=== PATIENT | male | born 1965 | race Caucasian/White ===

== ENCOUNTER 2020-08-29 13:37 | Outpatient (REF) | payer OTHER, SELFPAY ==
--- NOTE | 2020-08-29 13:44 | XR_ITS ---
EXAMINATION: XR SHOULDER, RIGHT CLINICAL INFORMATION: Pain and right shoulder COMPARISON: None TECHNIQUE: AP external rotation, Grashey, scapular Y, and axillary views of the right shoulder. FINDINGS: There is no visible acute fracture, dislocation or subluxation. No bony erosive changes.. There is a 5 mm radiopaque density along the medial humeral head suggestive of fibroid. Suspect soft tissue calcification along distal RCA tendon, question calcific tendinitis. There is loss of right AC joint with inferior AC joint spurring. XR/XR shoulder RT min 2V IMPRESSION: Degenerative inferior spurring right AC joint likely impinging rotator cuff. Faint calcification along the right rotator cuff suspicious for calcific tendinitis. There is no visible acute fracture or dislocation.
== END 2020-08-29 13:38 | disposition home or self-care (01) ==
LOC: HO.HMGCX 13:37
PROVIDERS: PCP Internal Medicine; Visit Provider Internal Medicine
DX: M25.511 Pain in right shoulder (principal)
CPT/HCPCS: 73030

== ENCOUNTER 2024-03-09 11:05 | Outpatient (AMB) | payer BC, SELFPAY ==
--- NOTE | 2024-03-09 11:12 | A.OFFPC_ITS ---
Vital Signs 03/09/24 11:25 03/09/24 11:39 03/09/24 12:17 Height 5 ft 9.69 in Weight 302 lb 2 oz BMI 43.7 BP 155/93 H 162/79 H 148/92 H Blood Pressure Location Rt brachial Rt radial Lt brachial Position Sitting Sitting Sitting Respiration 16 Pulse 63 Pulse Source Pulse Oximeter Temp 98 F Temp Source Oral Intake Visit Reasons: est care [place], blood pressure issues Allergies codeine Allergy (Unknown, Verified 03/09/24 11:17) unknown Medication List - Last Reconciled 03/09/24 by Maria C Morin MD atorvastatin 40 mg PO DAILY hydrochlorothiazide 25 mg PO DAILY olmesartan 40 mg PO DAILY Tobacco use date assessed: 03/09/24 Dental Screening Dental Screen Date: 03/09/24 Did you have a dental visit in the last 12 months?: Yes Did you have a dental problem in the last 6 months where you did not have access to dental care?: No Was dental information given to patient?: Patient has dentist HPI HPI Comments History of Present Illness Details The patient is a 58 year old male with a past medical history of obesity, htn, hld, TIAs, ADD presenting for follow up. Transfer records not yet received CV: The patient is on atorvastatin, hctz, olmesartan. Blood pressure is moderately elevated today. Patient notes BP generally has been well controlled. Denies headaches. Is taking ASA 81mg. Never was called for ordered sleep study. Due for colonoscopy. Referral placed ROS CONSTITUTIONAL: Denies weight loss, fever and chills. HEENT: Denies changes in vision and hearing. RESPIRATORY: Denies SOB and cough. CV: Denies palpitations and CP GI: Denies abdominal pain, nausea, vomiting and diarrhea. : Denies dysuria and urinary frequency. MSK: Denies new myalgia and joint pain. SKIN: Denies rash and pruritus. NEUROLOGICAL: Denies headache PSYCHIATRIC: Denies recent changes in mood. PHYSICAL EXAM: GENERAL: Alert and oriented x 3. NAD EYES: EOMI. Anicteric. HENT: Moist mucous membranes. No scleral icterus. No cervical lymphadenopathy. LUNGS: Clear to auscultation bilaterally. CARDIOVASCULAR: Regular rate and rhythm. No murmur. No JVD. ABDOMEN: Soft, non-tender +bs EXTREMITIES: No edema. Non-tender. SKIN: No rashes or lesions. Warm. NEUROLOGIC: No focal neurological deficits. CN II-XII grossly intact PSYCHIATRIC: Cooperative. Appropriate mood and affect [facility] Medical History (Updated 03/09/24 @ 12:56 by Maria C Morin MD) HTN (hypertension) Annual physical exam Shoulder pain, right Surgical History (Updated 10/23/20 @ 08:59 by RADHA Tierney, [employer] PROGRAMMER) No pertinent past surgical history Family History (Updated 10/23/20 @ 09:00 by Katalina Graves, RADHA, [employer] PROGRAMMER) Father HTN (hypertension) Diabetes Throat cancer Mother Pancreatic cancer Breast CA Sister HTN (hypertension) Social History (Updated 08/29/20 @ 12:39 by Sweetie Lynch RN) Housing: Apartment Alcohol intake: current Alcohol intake frequency: a few times a week Patient Tobacco Use Status: Former Tobacco user Cigarette Packs Per Day: 0.5 Years Smoked: 33 e-Cigarette/Vaping Use: Never Used service: No Current occupational status: employed 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 1. Little interest or pleasure in doing things: not at all 2. Feeling down, depressed, or hopeless: not at all 3. Trouble falling or staying asleep, or sleeping too much: not at all 4. Feeling tired or having little energy: several days 5. Poor appetite or overeating: several days 6. Feeling bad about yourself - or that you are a failure or have let yourself or your family down: not at all 7. Trouble concentrating on things, such as reading the newspaper or watching television: several days 8. Moving or speaking so slowly that other people could have noticed. Or the opposite - being so fidgety or restless that you have been moving around a lot more than usual: not at all 9. Thoughts that you would be better off or of hurting yourself in some way: not at all Total score: 3 Depression Screening Interpretation: Negative (neg) Depression Screening Done: Yes Source: Developed by Drs. Colton L. Arlette Solis, Anthony Arroyo and colleagues, with an educational paty from [employer]. Thrive Questionnaire Date Thrive assessed: 03/09/24 I am a: Patient What is your living situation today?: I have a steady place to live Within the past 12 months, did the food you bought not last and you didn't have the money to get more?: Never true Within the past 12 months, did you worry whether your food would run out before you got money to buy more?: Never true Do you have trouble paying for medicines?: No Do you have trouble getting transportation to medical appointments?: No Do you have trouble paying your heating and electricity bill?: No Do you have trouble taking care of your child, family member or friend?: No Do you have trouble with day-to-day activities such as bathing, preparing meals, shopping, managing finances, etc.?: No Are you currently unemployed and looking for a job?: No Are you interested in more education?: No Please select the resources that you would like help with: None Currently or been in a relationship where the following occur: I choose not to answer this question THRIVE Score: 0 AUDIT C Alcohol Use Questionnaire (AUDIT-C) 1. How often do you have a drink containing alcohol?: 2-3 times a week 2. How many drinks containing alcohol do you have on a typical day when you are drinking?: 1 or 2 3. How often do you have six or more drinks on one occasion?: Monthly (Not every month ) Total Score: 5 EPIFANIO-7 AMB Questionnaire EPIFANIO-7 Date EPIFANIO - 7 assessed: 03/09/24 Feeling nervous, anxious, or on edge: 0 = Not at all Not being able to stop or control worryin = Not at all Worrying too much about different things: 0 = Not at all Trouble relaxin = Not at all Being so restless that it is hard to sit still: 0 = Not at all Becoming easily annoyed or irritable: 1 = Several days Feeling afraid as if something awful might happen: 0 = Not at all Total EPIFANIO-7 score (0-4 normal; 5-9 mild; 10-14 moderate; 15-21 severe): 1 Source: Developed by Arlette Gonzales, Anthony Arroyo and colleagues, with an educational paty from [employer]. EPIFANIO-7 Assessment Billing EPIFANIO-7 Assessment Tool: EPIFANIO-7 Assessment 93322 Review of Systems Const Details: ROS CONSTITUTIONAL: Denies weight loss, fever and chills. HEENT: Denies changes in vision and hearing. RESPIRATORY: Denies SOB and cough. CV: Denies palpitations and CP GI: Denies abdominal pain, nausea, vomiting and diarrhea. : Denies dysuria and urinary frequency. MSK: Denies new myalgia and joint pain. SKIN: Denies rash and pruritus. NEUROLOGICAL: Denies headache PSYCHIATRIC: Denies recent changes in mood. Physical exam (Primary Care) Vital Signs: Last Vital Signs Temp 98 F 03/09/24 11:25 Pulse 63 03/09/24 11:25 Resp 16 03/09/24 11:25 BP 148/92 H 03/09/24 12:17 PHYSICAL EXAM: GENERAL: Alert and oriented x 3. NAD EYES: EOMI. Anicteric. HENT: Moist mucous membranes. No scleral icterus. No cervical lymphadenopathy. LUNGS: Clear to auscultation bilaterally. CARDIOVASCULAR: Regular rate and rhythm. No murmur. No JVD. ABDOMEN: Soft, non-tender +bs EXTREMITIES: No edema. Non-tender. SKIN: No rashes or lesions. Warm. NEUROLOGIC: No focal neurological deficits. CN II-XII grossly intact PSYCHIATRIC: Cooperative. Appropriate mood and affect BMI result Body Mass Index 43.7 Tobacco/Smoking Status: Tobacco use Status Tobacco use date assessed 03/09/24 03/09/24 11:28 Patient Tobacco Use Status Former Tobacco user 03/09/24 11:28 e-Cigarette/Vaping Use Never Used 03/09/24 11:28 Depression Screening Interpretation: Negative (neg) Thrive Assessment: Date of Thrive Assessment Date Thrive assessed 03/09/24 03/09/24 11:38 Currently or been in a relationship where the following occur: I choose not to answer this question Assessment and Plan Assessment & Plan (1) Hyperlipidemia: Comment: monitor LDL. With history of TIA would like <70. continue current medications Code(s): E78.5 - Hyperlipidemia, unspecified Qualifiers: Hyperlipidemia type: unspecified Qualified Code(s): E78.5 - Hyperlipidemia, unspecified (2) TIA (transient ischemic attack): Code(s): G45.9 - Transient cerebral ischemic attack, unspecified (3) Attention deficit: Code(s): R41.840 - Attention and concentration deficit Plan: Improved with job change (4) Elevated glucose: Code(s): R73.09 - Other abnormal glucose Plan: Monitor A1C. Start mounjaro if insurance approves Orders: Orders RT home sleep study Today Complete Blood Count Auto Diff Today E78.5 - Hyperlipidemia, unspecified, R41.840 - Attention and concentration deficit, R73.09 - Other abnormal glucose Lipid Panel Today E78.5 - Hyperlipidemia, unspecified, R41.840 - Attention and concentration deficit, R73.09 - Other abnormal glucose Hemoglobin A1c Today E78.5 - Hyperlipidemia, unspecified, R41.840 - Attention and concentration deficit, R73.09 - Other abnormal glucose Comprehensive [place]. Panel Fast Today E78.5 - Hyperlipidemia, unspecified, R41.840 - Attention and concentration deficit, R73.09 - Other abnormal glucose Referrals Open Access Screening Colonoscopy Referral Z12.11 - Encounter for screening for malignant neoplasm of colon, Z12.12 - Encounter for screening for malignant neoplasm of rectum Medications: New atorvastatin 40 mg PO DAILY 90 tabs 3RF 90 days olmesartan 40 mg PO DAILY 90 tabs 3RF aspirin (Adult Aspirin Regimen) 81 mg PO DAILY tirzepatide (Mounjaro) 2.5 mg (0.5 mL) subcut QWEEK 2 mL 0RF 4 weeks hydrochlorothiazide 25 mg PO DAILY 90 tabs 3RF Coding Level of Care Code Est Pt Level 4 (52545) Complex EM visit Add On G2211 Diagnoses Hyperlipidemia, unspecified hyperlipidemia type E78.5 Hyperlipidemia type: unspecified TIA (transient ischemic attack) G45.9 Attention deficit R41.840 Elevated glucose R73.09 Additional Codes EPIFANIO-7 Assessment Billing - EPIFANIO-7 Assessment Tool: EPIFANIO-7 Assessment 66783 ([id number])
[2024-03-09 11:25] VITALS: BP 155/93; PULSE 63; RESP 16; TEMP 36.6; BMI 43.7
[2024-03-09 11:39] VITALS: BP 162/79
[2024-03-09 12:17] VITALS: BP 148/92
== END 2024-03-09 12:26 | disposition home or self-care (01) ==
PROVIDERS: PCP Internal Medicine; Visit Provider Internal Medicine
DX: E78.5 Hyperlipidemia, unspecified (principal); G45.9 Transient cerebral ischemic attack, unspecified; R41.840 Attention and concentration deficit; R73.09 Other abnormal glucose
CPT/HCPCS: 99214

== ENCOUNTER 2024-03-09 12:22 | Outpatient (REF) | payer BC, SELFPAY ==
[2024-03-09 14:23] LABS: MANUAL DIFF FLAG NO
[2024-03-09 14:34] LABS: Basophils Percent Auto 0.3 % (0-2); Eosinophils Absolute Auto 0.1 X10*3/uL (0.0-0.4); Hematocrit 39.9 % (42.0-52.0); Hemoglobin 13.9 g/dl (14.0-18.0); Imm Gran Abs Auto 0.05 X10*3/uL (0.00-0.03); Imm Gran Pct Auto 0.5 % (0.0-0.4); Lymphocytes Absolute Auto 3.3 X10*3/uL (1.2-4.9); Lymphocytes Percent Auto 32.8 % (20-40); Mean Corpuscular HGB Conc 34.8 g/dl (31.0-36.0); Mean Corpuscular Hemoglobin 29.7 pg (27.0-33.0); Mean Corpuscular Volume 85.3 fL (80.0-98.0); Mean Platelet Volume 11.3 fL (9.4-12.4); Monocytes Absolute Auto 0.7 X10*3/uL (0.1-1.2); Monocytes Percent Auto 7.5 % (2-11); Neutrophils Absolute Auto 5.7 x10*3/uL (2.0-8.3); Neutrophils Percent Auto 57.9 % (45-73); Platelet Count 211 X10*3/uL (160-400); Red Blood Count 4.68 X10*6/uL (4.60-5.80); Red Cell Distribution Width 13.8 % (11.0-16.0); White Blood Count 9.9 X10*3/uL (4.8-10.8)
[2024-03-09 14:37] LABS: Estimated Average Glucose 171 mg/dL; Hemoglobin A1c % 7.6 % (<6.0)
[2024-03-09 14:47] LABS: Alanine Aminotransferase 25 U/L (0-40); Albumin Level 4.4 g/dL (3.5-5.0); Alkaline Phosphatase 93 U/L (39-117); Anion Gap 12 (12-20); Aspartate Amino Transferase 20 U/L (5-37); Bilirubin Total 0.6 mg/dL (0.0-1.0); Blood Urea Nitrogen 17 mg/dL (9-16); Calcium 9.8 mg/dL (8.4-10.2); Carbon Dioxide 27 mmol/L (22-29); Chloride 105 mmol/L (96-108); Cholesterol 118 mg/dL (<200); Estimated Glomerular Filt Rate > 60; Glucose Fasting 118 mg/dL (60-99); HDL Cholesterol 30 mg/dL (>40); LDL Cholesterol Calculated 32 mg/dL (<100); Sodium 140 mmol/L (135-145); Total Protein 7.2 g/dL (6.5-8.0); Triglycerides 280 mg/dL (<150)
== END 2024-03-09 12:23 | disposition home or self-care (01) ==
LOC: HO.WFDLDS 12:22
PROVIDERS: Visit Provider Internal Medicine
DX: E78.5 Hyperlipidemia, unspecified (principal); R73.09 Other abnormal glucose; R41.840 Attention and concentration deficit
CPT/HCPCS: 36415; 80053; 80061; 83036; 85025

== ENCOUNTER 2024-09-27 10:37 | Outpatient (AMB) | payer BC, SELFPAY ==
--- NOTE | 2024-09-27 10:47 | A.OFFPC_ITS ---
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 He was started on metformin. Then mounjaro was added. Blood glucose readings have been controlled. Patient has been feeling fatigue. CV: The patient is on atorvastatin, hctz, olmesartan. Blood pressure is moderately elevated today. Patient notes BP generally has been well controlled. Denies headaches. Is taking ASA 81mg. Never was called for ordered sleep study. Due for colonoscopy. Referral placed ROS see HPI PHYSICAL EXAM: GENERAL: Alert and oriented x 3. NAD EYES: EOMI. Anicteric. HENT: Moist mucous membranes. No scleral icterus. No cervical lymphadenopathy. LUNGS: Clear to auscultation bilaterally. CARDIOVASCULAR: Regular rate and rhythm. No murmur. No JVD. ABDOMEN: Soft, non-tender +bs EXTREMITIES: No edema. Non-tender. SKIN: No rashes or lesions. Warm. NEUROLOGIC: No focal neurological deficits. CN II-XII grossly intact PSYCHIATRIC: Cooperative. 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 1. Little interest or pleasure in doing things: not at all 2. Feeling down, depressed, or hopeless: not at all 3. Trouble falling or staying asleep, or sleeping too much: not at all 4. Feeling tired or having little energy: not at all 5. Poor appetite or overeating: not at all 6. Feeling bad about yourself - or that you are a failure or have let yourself or your family down: not at all 7. Trouble concentrating on things, such as reading the newspaper or watching television: not at all 8. Moving or speaking so slowly that other people could have noticed. Or the opposite - being so fidgety or restless that you have been moving around a lot more than usual: not at all 9. Thoughts that you would be better off or of hurting yourself in some way: not at all Total score: 0 Depression Screening Interpretation: Negative Depression Screening Done: Yes 83986 - PHQ-9 Billing: Yes Source: Developed by Drs. Colton Solis, Arlette Granados, Anthony Arroyo and colleagues, with an educational paty from [employer]. Thrive Questionnaire Date Thrive assessed: 09/27/24 I am a: Patient What is your living situation today?: I have a steady place to live Within the past 12 months, did the food you bought not last and you didn't have the money to get more?: Never true Within the past 12 months, did you worry whether your food would run out before you got money to buy more?: Never true Do you have trouble paying for medicines?: No Do you have trouble getting transportation to medical appointments?: No Do you have trouble paying your heating and electricity bill?: No Do you have trouble taking care of your child, family member or friend?: No Do you have trouble with day-to-day activities such as bathing, preparing meals, shopping, managing finances, etc.?: No Are you currently unemployed and looking for a job?: No Are you interested in more education?: No Please select the resources that you would like help with: None Currently or been in a relationship where the following occur: No concerns reported THRIVE Score: 0 AUDIT C Alcohol Use Questionnaire (AUDIT-C) 1. How often do you have a drink containing alcohol?: 2-4 times a month 2. How many drinks containing alcohol do you have on a typical day when you are drinking?: 1 or 2 3. How often do you have six or more drinks on one occasion?: Never Total Score: 2 EPIFANIO-7 AMB Questionnaire EPIFANIO-7 Date EPIFANIO - 7 assessed: 09/27/24 Feeling nervous, anxious, or on edge: 0 = Not at all Not being able to stop or control worryin = Not at all Worrying too much about different things: 0 = Not at all Trouble relaxin = Several days Being so restless that it is hard to sit still: 0 = Not at all Becoming easily annoyed or irritable: 0 = Not at all Feeling afraid as if something awful might happen: 0 = Not at all Total EPIFANIO-7 score (0-4 normal; 5-9 mild; 10-14 moderate; 15-21 severe): 1 Source: Developed by Drs. Colton Solis, Arlette Granados, Anthony Arroyo and colleagues, with an educational paty from [employer]. EPIFANIO-7 Assessment Billing EPIFANIO-7 Assessment Tool: EPIFANIO-7 Assessment 67329 Physical exam (Primary Care) Vital Signs: Last Vital Signs Pulse 70 09/27/24 10:57 BP 122/76 09/27/24 10:57 Pulse Ox 97 09/27/24 10:57 Oxygen Delivery Method Room Air 09/27/24 10:57 BMI result Body Mass Index 43.1 Tobacco/Smoking Status: Tobacco use Status Tobacco use date assessed 03/09/24 09/27/24 10:48 Patient Tobacco Use Status Former Tobacco user 09/27/24 10:58 e-Cigarette/Vaping Use Never Used 09/27/24 10:58 PHQ-9: PHQ-9 Score PHQ-9: Total score 0 10/03/24 17:01 Depression Screening Interpretation: Negative Thrive Assessment: Date of Thrive Assessment Date Thrive assessed 09/27/24 09/27/24 10:58 Currently or been in a relationship where the following occur: No concerns reported Coding Level of Care Code Est Pt Level 4 (87651) Diagnoses Annual physical exam Z00.00 Type 2 diabetes mellitus with diabetic polyneuropathy, without long-term current use of insulin E11.42 Diabetes mellitus complication detail: with polyneuropathy Diabetes mellitus complication status: with neurologic complications Diabetes mellitus mcc insulin use: without clothing busheler use Additional Codes EPIFANIO-7 Assessment Billing - EPIFANIO-7 Assessment Tool: EPIFANIO-7 Assessment 18162 ([id number]) PHQ-9 - 75775 - PHQ-9 Billing: Yes ([id number]) Assessment & Plan Assessment & Plan (1) Annual physical exam: Code(s): Z00.00 - Encounter for general adult medical examination without abnormal findings Category: Medical Plan: Preventive measures reviewed Chronic medical conditions reviewed Medications reconciled (2) Type 2 diabetes mellitus: Code(s): E11.9 - Type 2 diabetes mellitus without complications Category: Medical Qualifiers: Diabetes mellitus complication detail: with polyneuropathy Diabetes mellitus complication status: with neurologic complications Diabetes mellitus clothing busheler insulin use: without mcc use Qualified Code(s): E11.42 - Type 2 diabetes mellitus with diabetic polyneuropathy Plan: Increase mounjaro to 5. Decrease metformin Orders: Orders AMB Hemoglobin A1c 09/27/24 E11.42 - Type 2 diabetes mellitus with diabetic polyneuropathy Lipid Panel 09/27/24 E11.42 - Type 2 diabetes mellitus with diabetic polyneuropathy, I10 - Essential (primary) hypertension, Z00.00 - Encounter for general adult medical examination without abnormal findings Prostate Specific Antigen 09/27/24 E11.42 - Type 2 diabetes mellitus with diabetic polyneuropathy, I10 - Essential (primary) hypertension, Z00.00 - Encounter for general adult medical examination without abnormal findings Hemoglobin A1c 09/27/24 E11.42 - Type 2 diabetes mellitus with diabetic polyneuropathy, I10 - Essential (primary) hypertension, Z00.00 - Encounter for general adult medical examination without abnormal findings Complete Blood Count Auto Diff 3 Months E11.42 - Type 2 diabetes mellitus with diabetic polyneuropathy, I10 - Essential (primary) hypertension, Z00.00 - Encounter for general adult medical examination without abnormal findings Comprehensive Met. Panel 09/27/24 E11.42 - Type 2 diabetes mellitus with diabetic polyneuropathy, I10 - Essential (primary) hypertension, Z00.00 - Encounter for general adult medical examination without abnormal findings TSH reflex Free T4 09/27/24 E11.42 - Type 2 diabetes mellitus with diabetic polyneuropathy, I10 - Essential (primary) hypertension, Z00.00 - Encounter for general adult medical examination without abnormal findings Referrals Open Access Screening Colonoscopy Referral Z12.11 - Encounter for screening for malignant neoplasm of colon, Z12.12 - Encounter for screening for malignant neoplasm of rectum Medications: New Mounjaro (tirzepatide) 5 mg (0.5 mL) subcut QWEEK 6 mL 3RF NS E11.42 - Type 2 diabetes mellitus with diabetic polyneuropathy Changed From metformin ER 1,000 mg (2 x 500 mg) PO DAILY 90 days 180 tabs 3RF To metformin ER 500 mg PO DAILY 90 tabs 3RF 90 days Discontinued tirzepatide Discontinued Reason: Doctor's Order 2.5 mg (0.5 mL) subcut QWEEK 6 mL 3RF
[2024-09-27 10:57] VITALS: BP 122/76; PULSE 70; O2SAT 97; BMI 43.1
== END 2024-09-27 15:13 | disposition home or self-care (01) ==
PROVIDERS: PCP Internal Medicine; Visit Provider Internal Medicine
DX: Z00.00 Encounter for general adult medical examination without abnormal findings (principal); E11.42 Type 2 diabetes mellitus with diabetic polyneuropathy

== ENCOUNTER → 2024-09-27 10:37 | Outpatient (BNVA) | payer BC, SELFPAY | PROVIDERS: PCP Internal Medicine; Visit Provider Internal Medicine | DX: Z00.00 Encounter for general adult medical examination without abnormal findings (principal); E11.42 Type 2 diabetes mellitus with diabetic polyneuropathy; I10 Essential (primary) hypertension; Z86.73 Personal history of transient ischemic attack (TIA), and cerebral infarction without residual deficits; Z79.84 Long term (current) use of oral hypoglycemic drugs; Z79.899 Other long term (current) drug therapy | CPT/HCPCS: 96127 ==

== ENCOUNTER 2024-12-27 08:49 | Outpatient (AMB) | payer BC, SELFPAY ==
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
[2024-12-27 08:58] VITALS: BP 114/72; PULSE 59; RESP 16; O2SAT 96; BMI 42.1
== END 2024-12-27 09:18 | disposition home or self-care (01) ==
LOC: HO.HMCFM 08:50
PROVIDERS: PCP Internal Medicine; Visit Provider Internal Medicine
DX: E11.42 Type 2 diabetes mellitus with diabetic polyneuropathy (principal); I10 Essential (primary) hypertension; E66.01 Morbid (severe) obesity due to excess calories; Z68.41 Body mass index [BMI] 40.0-44.9, adult

== ENCOUNTER → 2024-12-27 08:49 | Outpatient (BNVA) | payer BC, SELFPAY | PROVIDERS: PCP Internal Medicine; Visit Provider Internal Medicine | DX: E11.42 Type 2 diabetes mellitus with diabetic polyneuropathy (principal); I10 Essential (primary) hypertension; E78.5 Hyperlipidemia, unspecified; F98.8 Other specified behavioral and emotional disorders with onset usually occurring in childhood and adolescence; E66.01 Morbid (severe) obesity due to excess calories; E66.813 Obesity, class 3; Z86.73 Personal history of transient ischemic attack (TIA), and cerebral infarction without residual deficits; Z68.41 Body mass index [BMI] 40.0-44.9, adult | CPT/HCPCS: 83036 ==

== ENCOUNTER 2024-12-27 09:22 | Outpatient (REF) | payer BC, SELFPAY ==
[2024-12-27 12:30] LABS: MANUAL DIFF FLAG NO
[2024-12-27 12:45] LABS: Basophils Percent Auto 0.3 % (0-2); Eosinophils Absolute Auto 0.1 X10*3/uL (0.0-0.4); Eosinophils Percent Auto 1.4 % (0-4); Hematocrit 41.1 % (42.0-52.0); Imm Gran Abs Auto 0.02 X10*3/uL (0.00-0.03); Imm Gran Pct Auto 0.2 % (0.0-0.4); Lymphocytes Absolute Auto 3.2 X10*3/uL (1.2-4.9); Lymphocytes Percent Auto 36.1 % (20-40); Mean Corpuscular HGB Conc 34.1 g/dl (31.0-36.0); Mean Corpuscular Hemoglobin 29.5 pg (27.0-33.0); Mean Corpuscular Volume 86.5 fL (80.0-98.0); Mean Platelet Volume 11.4 fL (9.4-12.4); Monocytes Absolute Auto 0.8 X10*3/uL (0.1-1.2); Monocytes Percent Auto 8.6 % (2-11); Neutrophils Absolute Auto 4.7 x10*3/uL (2.0-8.3); Neutrophils Percent Auto 53.4 % (45-73); Platelet Count 229 X10*3/uL (160-400); Red Blood Count 4.75 X10*6/uL (4.60-5.80); Red Cell Distribution Width 13.7 % (11.0-16.0); White Blood Count 8.9 X10*3/uL (4.8-10.8)
[2024-12-27 13:13] LABS: Prostate Specific Antigen 0.75 ng/mL (<0.05-4.0)
[2024-12-27 13:20] LABS: Alanine Aminotransferase 33 U/L (0-40); Albumin Level 4.3 g/dL (3.5-5.0); Alkaline Phosphatase 85 U/L (39-117); Anion Gap 11 (12-20); Aspartate Amino Transferase 26 U/L (5-37); Bilirubin Total 0.4 mg/dL (0.0-1.0); Blood Urea Nitrogen 20 mg/dL (9-16); Calcium 9.5 mg/dL (8.4-10.2); Carbon Dioxide 26 mmol/L (22-29); Chloride 109 mmol/L (96-108); Estimated Glomerular Filt Rate > 60; Glucose Random 118 mg/dL (60-115); Potassium 4.2 mmol/L (3.3-5.1); Sodium 142 mmol/L (135-145)
== END 2024-12-27 09:23 | disposition home or self-care (01) ==
LOC: HO.WFDLDS 09:22
PROVIDERS: Visit Provider Internal Medicine
DX: Z00.00 Encounter for general adult medical examination without abnormal findings (principal); E11.42 Type 2 diabetes mellitus with diabetic polyneuropathy; I10 Essential (primary) hypertension; Z12.5 Encounter for screening for malignant neoplasm of prostate
CPT/HCPCS: 36415; 80053; 84153; 84443; 85025

== ENCOUNTER 2025-02-11 08:52 | Outpatient (AMB) | payer BC, SELFPAY ==
--- NOTE | 2025-02-11 08:54 | MHC.OFFVIS ---
Vital Signs 02/11/25 08:55 Height 5 ft 9 in Weight 284 lb 6.341 oz BMI 42.0 BP 135/97 H Blood Pressure Location Lt brachial Position Sitting Pulse 66 Intake Visit Reasons: [place] screening - new pt Intake Note: Rickey presents in the office as a colonoscopy screening. CC: He states that he is just due - this is his first colonoscopy! Fire Supervisor Required: No Allergies codeine Allergy (Unknown, Verified 02/11/25 08:56) unknown Medication List - Last Reconciled 02/11/25 by Mery Coe CNP aspirin (Adult Aspirin Regimen) 81 mg PO DAILY atorvastatin 40 mg PO DAILY 90 days bisacodyl 5 mg PO ONCE 1 day FreeStyle Lancets (lancets) to check blood glucose daily NS FreeStyle Lite Meter (blood-glucose meter) check once daily NS FreeStyle Test (blood sugar diagnostic) check BG once daily NS hydrochlorothiazide 25 mg PO DAILY lorazepam 1 mg PO BID PRN metformin ER 500 mg PO DAILY 90 days olmesartan 40 mg PO DAILY polyethylene glycol 3350 (Miralax) 238 grams PO ONCE tirzepatide (Mounjaro) 5 mg (0.5 mL) subcut QWEEK HPI HPI [place] screening - new pt: Details: Patient is a 59-year-old male with PMH of obesity, hypertension, hyperlipidemia, diabetes, hx of TIA and ADD. Referred by PCP for pre colonoscopy screening. The patient reports that this is their first colonoscopy, and they have not participated in any stool screenings before. The patient describes regular bowel patterns, usually once or twice daily in the morning, with firm to soft stools. There is occasional loose stool associated with specific food intake, particularly cured meats and pizza. No history of constipation, nausea, vomiting, blood in stool, or significant gastrointestinal concerns. Rare instances of acid reflux occur depending on diet, which resolves with [id number] remedies. The patient reports feeling irritation from salty foods, which has become more pronounced with age. The patient has been on Mounjaro for approximately six months, which has curbed appetite and contributed to mild weight loss and intermittent changes in bowel frequency. Patient denies: fever/chills, regurgitation, dysphasia, unintentional wt loss, ab pain or melena/hematochezia. SOCIAL HISTORY: - Diet: Limited intake of cured meats and high-salt foods. - Alcohol: Consumes alcohol approximately twice a month, typically two to three beers or a martini per session. - Tobacco: Quit approximately ten years ago. - Recreational Drug Use: Marijuana, a few times a week. - Occupation: Not specified; discusses housing and relocation stress. - family hx as below -denies personal hx of CA - post-op nausea, otherwise tolerated anesthesia in the past without difficulty. [facility] Medical History No history of major surgery within 1 month HTN (hypertension) Annual physical exam Shoulder pain, right Surgical History No pertinent past surgical history Family History (Updated 02/11/25 @ 09:42 by Mery Coe CNP) Father HTN (hypertension) Diabetes Throat cancer Bladder cancer Mother Pancreatic cancer Breast CA Sister HTN (hypertension) Social History Housing: Apartment Alcohol intake: current Alcohol intake frequency: a few times a week Patient Tobacco Use Status: Former Tobacco user Cigarette Packs Per Day: 0.5 Years Smoked: 33 e-Cigarette/Vaping Use: Never Used Substance Use Type: Marijuana service: No Current occupational status: employed 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) Cognitive needs: No Hearing needs: No Vision needs: Yes (glasses) Review of Systems Const Reports as per HPI ENT Reports as per HPI Card Reports as per HPI Resp Reports as per HPI GI Reports as per HPI Reports as per HPI Physical Exam Vital Signs: Last Vital Signs Pulse 66 02/11/25 08:55 BP 135/97 H 02/11/25 08:55 BMI result Body Mass Index 42.0 Const General: healthy appearing, no acute distress and well developed Nutritional Appearance: obese Orientation/consciousness: patient oriented x3 HEENT Head: Yes normal to inspection, Yes normocephalic and Yes atraumatic Face and sinus: Yes normal facial exam Eyes General: appearance normal, both eyes and all related structures Neck Neck: Yes normal visual inspection Resp Effort & Inspection: normal respiratory effort, able to speak in complete sentences, no tracheal deviation and symmetric chest movement Auscultation: clear to auscultation bilaterally Cardio Jugular venous distension: no JVD Rate: regular rate Rhythm: regular rhythm Heart sounds: S1 normal heart sound present, S2 normal heart sound present, no gallops and no murmurs GI Inspection: Yes normal to inspection, No distended and Yes obesity Palpation (GI): Soft to palpation, not firm, nontender and No hepatosplenomegaly present Auscultation: normal bowel sounds Neuro General: patient oriented x3 Gait exam (Neuro): Normal gait present Psych Appearance: grossly normal Mental Status: mental status grossly normal Speech and movement: Normal speech and movement present Affect: normal affect Attitude: cooperative Thought process: Normal thought process present Thought content: Normal thought content present Insight: Good insight present (Psych) Judgement: Good judgement present (Psych) Assessment & Plan Assessment & Plan (1) Screening for colon cancer: Code(s): Z12.11 - Encounter for screening for malignant neoplasm of colon Category: Medical Plan: Index screening colonoscopy. Diagnostic Tests: Prescriptions for laxative tablets and Miralax sent to pharmacy; instructions for Gatorade purchase and clear liquid diet given. Medications: -Will need to hold aspirin and Mounjaro 7 days prior to procedure. Patient educated on procedure preparation, including avoiding certain foods and ensuring clear liquid intake. Advised on necessity for ride post-procedure due to sedation. Plan Follow-up after colonoscopy as needed. Time: I spent a total of 30 minutes on the date of encounter which includes: Preparing to see the patient (reviewed previous documentation, test results and medical history) Performing a medically appropriate exam and/or evaluation Ordering medications, tests, and procedures Documenting clinical information in the health record Medications: New polyethylene glycol 3350 (Miralax) per colonoscopy prep instructions 238 grams PO ONCE 238 grams 0RF bisacodyl Take four tablets once for 1 day per colonoscopy instructions 5 mg PO ONCE 1 day 4 tabs 0RF Coding Level of Care Code New Pt New Pt Level 3 (64298) Patient Type New Diagnoses Screening for colon cancer Z12.11
[2025-02-11 08:55] VITALS: BP 135/97; PULSE 66; BMI 42.0
--- OUTSIDE RECORDS SUMMARY | 2025-02-11 09:05 | XMS_ITS | Clinical Summary ---
Author Organization [facility] Address [id number] [place] [id number] Care Team Providers Care Jewel Waxer Name Role Phone Unavailable Primary Care Provider Unavailabl e Social History Tobacco Use Types Packs/Day Years Used Date Smoking Tobacco: Never Assessed Sex and Gender Information Value Date Recorded Sex Assigned at Not on file Legal Sex Male 11:05 PM EST Gender Identity Not on file Sexual Orientation Not on file Plan of Treatment Health Maintenance Due Date Last Done Comments DTaP,Tdap,and Td Vaccines (1 - Tdap) 1984 Hepatitis B Vaccines (1 of 3 - 19+ 3-dose series) 1984 Pneumococcal Vaccine: 50+ Ye ars (1 of 1 - PCV) 2015 Zoster Vaccines (1 of 2) 2015 COVID-19 Vaccine ( - 2023-2 5 season) 2024 Influenza Vaccine (Season Ended) 2025 RSV Immunization Adult Patie nts (1 - 1-dose 75+ series) 2040 HIB Vaccines Aged Out No longer eligi ble based on patient's age to complete this topic HPV Vaccines Aged Out No longer eligi ble based on patient's age to complete this topic Hepatitis A Vaccines Aged Out No long er eligible based on patient's age to complete this topic IPV Vaccines Aged Out No longer eligi ble based on patient's age to complete this topic MMR Vaccines Aged Out No longer eligi ble based on patient's age to complete this topic Meningococcal ACWY Vaccine Aged Out N o longer eligible based on patient's age to complete this topic Meningococcal B Vaccine Aged Out No l onger eligible based on patient's age to complete this topic Pneumococcal Vaccine: Pediat rics (0 to 5 Years) and At-Risk Patients (6 to 64 Years) Aged Out No longer eligible b ased on patient's age to complete this topic RSV Immunization Patients Un quintin 20 months Aged Out No longer eligible b ased on patient's age to complete this topic Varicella Vaccines Aged Out No longer eligible based on patient's age to complete this topic
--- OUTSIDE RECORDS SUMMARY | 2025-02-11 09:05 | XMS_ITS | Data Portability ---
Author Organization [facility] [address] Address [address] [place] [address] Assessment No assessment recorded. Plan of Treatment Reminders Order Date Submit Date Provider Last Modified By Organization Details Last Modified Time Details Appointments None record ed. Lab None record ed. Referral None record ed. Procedures None record ed. Surgeries None record ed. Imaging None record ed. Medication Orders None record ed. Patient TargetsNo targets recorded. Patient InstructionsNo instructions recorded. Reason for Referral None Reported. Procedures Surgical History Date Name Laterality Status Provider Name and Address Organization Details Recorded Time 3 OC-UDS Send Out Template NON DOT completed DESIREELA LOPESSooliganA [facility] 04/30/2023 12:25:41 3 OC-UDS Send Out Template NON DOT completed Kast[facility] 02/22/2023 12:25:29 Imaging Results None recorded. Procedure Notes None recorded. Medical Equipment None Reported. Medications Name Sig Start Date Stop Date Status Note LastModified by Organization Details LastModified Time verapamil ER (SR) 120 mg tablet,extende d release TAKE 1 TABLET BY MOUTH EVERY 12 HOURS active Not Available Not Available No t Available atorvastatin 40 mg tablet TAKE 1 TABLET BY MOUTH EVERY DAY active Not Available Not Available No t Available amlodipine 5 mg tablet TAKE 1 TABLET BY MOUTH EVERY DAY active Not Available Not Available No t Available Adderall XR 20 mg capsule,extend ed release active Not Available Not Available N ot Available terbinafine HCl 250 mg tablet TAKE 1 TABLET BY MOUTH EVERY DAY active Not Available Not Available No t Available Adderall XR 30 mg capsule,extend ed release TAKE 1 CAPSULE BY MOUTH EVERY MORNING active Not Available Not Available No t Available hydrochlorothi azide 25 mg tablet TAKE 1 TABLET BY MOUTH EVERY DAY active Not Available Not Available No t Available lorazepam 1 mg tablet TAKE 1 TABLET BY MOUTH 12 HOURS NEEDED FOR ANXIETY active Not Available Not Available No t Available amoxicillin 875 mg-potassium clavulanate 125 mg tablet TAKE 1 TABLET TWICE A DAY UNTIL FINISHED active Not Available Not Available No t Available olmesartan 20 mg tablet TAKE 1 TABLET BY MOUTH EVERY DAY active Not Available Not Available No t Available olmesartan 40 mg tablet TAKE 1 TABLET BY MOUTH EVERY DAY active Not Available Not Available No t Available butalbital-sandrine taminophen-caf feine 50 mg-300 mg-40 mg capsule TAKE 1 CAPSULE BY MOUTH EVERY 4 HOURS NEEDED FOR HEADACHE FOR 5 DAYS active Not Available Not Available No t Available Vitals None Recorded Social History None recorded. Functional Status None recorded. Mental Status None recorded. Family History Nothing Reported. Medical History No medical history recorded. Past Encounters Encounter ID Performer Location Encounter Start Date Encounter Closed Date Diagnosis/Indication Diagnosis SNOMED-CT Code Diagnosis ICD10 Code Diagnosis Note [id number] [address] [place] [address] 08/25/2020 09:26:19 08/25/2020 12:26:46 [id number] Laron Shi REGISTERED MEDICAL TRANSCRIPTIONIST [address] [place] [address] 02/22/2023 11:19:16 02/22/2023 12:30:26 History and physical examination, occupation [id number] Z02.1 [id number] VINNIE TREVIÑO [address] [place] [address] 04/30/2023 11:23:46 04/30/2023 12:26:10 History and physical examination, occupation [id number] Z02.1 Health Concerns Section Related Observation LastModified by Organization Detai ls LastModified Time None Recorded Concern Status LastModified by Organization Details LastModified Time None Recorded Advance Directives Directive None Recorded Payers Insurance Date Sequence Insurance Name Policy Number Policy Mckeon Covered Member ID Mckeon Member ID Guarantor Name 04/30/2023 1 [place] [facility] Rickey Domingo [id number] Rickey Domingo 04/30/2023 [employer]CREEN [employer] Mi chael D MacLure
--- OUTSIDE RECORDS SUMMARY | 2025-02-11 09:05 | XMS_ITS | Referral Summary ---
Author Organization [facility] Address [address] [place] [address] Care Team Providers Care [employer] Name Role Phone Unknown, Doctor Primary Care Provider Unavailabl e Social History Tobacco Use Types Packs/Day Years Used Date Smoking Tobacco: Never Assessed Sex and Gender Information Value Date Recorded Sex Assigned at Male 12/15/2023 3:20 PM EDT Legal Sex Male 5:02 PM EDT Gender Identity Male 12/16/2023 3:59 PM EDT Sexual Orientation Not on file Last Filed Vital Signs Vital Sign Reading Time Taken Comments Blood Pressure 147/96 12/17/2023 11:23 AM EDT Pulse 72 12/17/2023 11:23 AM EDT Temperature 36 ??C (96.8 ??F) 12/17/2023 11:23 AM EDT Respiratory Rate 18 12/17/2023 11:23 AM EDT Oxygen Saturation 97% 12/17/2023 11:23 AM EDT Inhaled Oxygen Concentration - - Weight 138.8 kg (306 lb) 12/17/2023 11:23 AM EDT Height 175.3 cm (5' 9 ) 12/17/2023 11:23 AM EDT Body Mass Index 45.19 12/17/2023 11:23 AM EDT Plan of Treatment Not on file Care Teams [employer] Relationship Specialty Start Date End Date Unknown, Doctor Unknown Unknown, RUSSELL PCP - General 12/15/23
--- OUTSIDE RECORDS SUMMARY | 2025-02-11 09:05 | XMS_ITS | Clinical Summary ---
Author Organization [facility] Address [address] [place] [address] Care Team Providers Care Media Marketing Specialist Name Role Phone Unknown, Doctor Primary Care [...] of Treatment Not on file Care Teams Media Marketing Specialist Relationship Specialty Start Date End Date Unknown, Doctor Unknown Unknown, RUSSELL PCP - General 12/15/23
== END 2025-02-11 09:25 | disposition home or self-care (01) ==
PROVIDERS: PCP Internal Medicine; Visit Provider Nurse Practitioner Family
DX: Z01.818 Encounter for other preprocedural examination (principal); Z12.11 Encounter for screening for malignant neoplasm of colon
CPT/HCPCS: S0285